=== PATIENT | male | born 1980 | race Caucasian/White ===

== ENCOUNTER 2023-04-20 21:29 | Emergency (ER) | payer MEDICAID ==
[~2023-04-20] VITALS: Ht 185.4 cm; Wt 149.7 kg
[2023-04-20 21:34] VITALS: BP_SYST 127; PULSE 104; RESP 20; TEMP 97; O2SAT 97
[2023-04-20 21:56] VITALS: BP_SYST 127; PULSE 104; RESP 20; TEMP 97; O2SAT 97
== END 2023-04-20 21:56 ==
LOC: SED 21:29
DX: Z02.89 Encounter for other administrative examinations (principal); G89.29 Other chronic pain; M54.50 Low back pain, unspecified; I10 Essential (primary) hypertension; Z79.899 Other long term (current) drug therapy
CPT/HCPCS: 99283